=== PATIENT | male | born 1985 | race Caucasian/White ===

== ENCOUNTER 2016-09-11 21:36 | Inpatient (IN) | payer MEDICAID ==
--- NOTE | ~2016-09-11 | HP ---
Unit #: [id number] #: [id number] Patient: HIMA CARPENTER [id number] [place] [address] [id number] I MR#: [id number] NAME: HIMA CARPENTER. ROOM: P207 Age: 31 Sex: M Admission Date: 09/11/2016 : 1985 Attending Physician: Abdirahman Grey M.D. Admitting Physician: Abdirahman Grey M.D. Primary Care Physician: Generic Doctor Not In System HISTORY AND PHYSICAL HISTORY OF PRESENT ILLNESS Hima is a 31 year old admitted to [address] [place] [address] because of his drug use. He shoots heroin. PAST MEDICAL HISTORY Long history of opioid abuse to include IV heroin PAST SURGICAL HISTORY Nothing reported ALLERGIES No known drug allergies. SOCIAL HISTORY Smokes one pack per day. Denies alcohol but admits to a long history of opioid abuse to include IV heroin. FAMILY HISTORY Medically noncontributory. REVIEW OF SYSTEMS CONSTITUTIONAL: No fever or chills. HEENT: Denies any sore throat, ear pain or runny nose. CARDIOVASCULAR: Denies chest pain, irregular heart rhythm or palpitations. CHEST: Denies shortness of breath or cough. No hemoptysis. GASTROINTESTINAL: Denies nausea, vomiting, diarrhea or chronic constipation. ENDOCRINE: Denies history of increased thirst or urination. No recent significant weight loss or gain. GENITOURINARY: Denies dysuria, frequency, or hematuria. SKIN: Denies any rashes. HEMATOLOGIC: Denies history of increased bleeding or bruising. MUSCULOSKELETAL: Denies any hot, swollen joints. No generalized muscle pain. NEUROLOGIC: Denies problems with vision or speech. No frequent, severe headaches. No numbness, tingling or weakness in any extremities. Denies loss of bladder or bowel control. CURRENT MEDICATIONS Detox protocol Unit #: [id number] #: [id number] Patient: HIMA CARPENTER PHYSICAL EXAMINATION GENERAL: Alert, well-nourished, in no apparent distress. VITAL SIGNS: Blood pressure 160/72, heart rate 66, respirations 16, temperature 98.6. WEIGHT: 170 pounds. HEIGHT: 5'8". SKIN: Warm and dry without rash or lesion. HEENT: Normocephalic. TMs not viewed. Oral and nasal passages clear. Conjunctivae clear. Pupils equal, round and reactive to light and accommodation. Extraocular movements intact. NECK: Supple without lymphadenopathy or thyromegaly. HEART: Regular rate and rhythm without murmur. LUNGS: Clear. ABDOMEN: Soft, nontender. : Not done. EXTREMITIES: No evidence of cyanosis, clubbing or edema. Moves all extremities without focal deficit. NEUROLOGICAL: Grossly within normal limits. Cranial Nerves: II: Visual [place] are intact. III, IV AND : Extraocular movements are intact. Pupils are equal, round and reactive to light. V: Facial sensation is grossly normal. VII: Facial movements and expression are normal. VIII: Auditory acuity grossly intact. IX, X: Uvula is midline. Phonation is normal. XI: Patient shrugs shoulders and turns head normally. XII: Tongue protrudes in the midline. Sensory and Motor Function: Sensory and motor sensation is grossly normal. Motor: moves all extremities well. Coordination: Gait is normal. Deep Tendon Reflexes: Intact. IMPRESSION Psychiatric admission RECOMMENDATIONS PSYCHIATRIC: Per psychiatrist. MEDICAL: I see no contraindications to participating in facility's activities. MEDICAL PROGNOSIS Good. MEDICAL CONDITION Stable. Dictated by... Mandi Guerra P.A.-C. for Chano Lopez/arnulfo TD: 09/13/2016 01:00 JOB #: [id number] Unit #: [id number] #: [id number] Patient: HIMA CARPENTER HISTORY AND PHYSICAL X Mandi Guerra X HISTORY AND PHYSICAL
--- NOTE | ~2016-09-11 | PA ---
Unit #: [id number] #: [id number] Patient: HIMA CARPENTER [id number] [place] [address] [id number] I MR#: [id number] NAME: HIMA CARPENTER. ROOM: P207 Age: 31 Sex: M Admission Date: 09/11/2016 : 1985 Date of Assessment: 09/12/2016 Attending Physician: Abdirahman Grey M.D. Admitting Physician: Abdirahman Grey M.D. Primary Care Physician: Generic Doctor Not In System PSYCHIATRIC ASSESSMENT IDENTIFYING INFORMATION The patient is a 31-year-old white male, admitted to the [address] [place] [address] with relapse of heroin use and suicidal ideation. INFORMANT(S) Patient, reliability is fair. CHIEF COMPLAINT Using heroin. HISTORY OF PRESENT ILLNESS The patient is a 31-year-old white male admitted to the [address] [place] [address] with recurrent abuse of heroin by means of snorting and intravenous use. The patient denies abuse of other psychiatric substances. He was, at the time of admission, complaining of suicidal ideation with planned overdose on heroin. The patient has been residing in a local half-way house in a local transitions home. He reports that precipitant to his suicidal thinking was the anniversary of his grandfather's , his grandfather eight months ago. The patient is currently unemployed. He denied any psychotic symptoms. When seen today he appears to be in significant physical distress related to opiate withdrawal. PAST PSYCHIATRIC HISTORY Is as above. PAST MEDICAL HISTORY Noncontributory. MEDICATIONS None. ALLERGIES None. FAMILY HISTORY Noncontributory. SOCIAL HISTORY The patient is currently living in a transitions housing. He reports substance use as noted previously, and is a smoker. MENTAL STATUS EXAM At this time reveals the patient to be a well-developed, well-nourished Unit #: [id number] #: [id number] Patient: HIMA CARPENTER white male, appearing his stated age. He is in significant physical distress related to opiate withdrawal during interview. He is awake, alert, and oriented in all spheres. His mood is dysphoric. His affect is constricted. Speech is generally relevant and coherent. There are no gross deficits to memory or cognition noted. Intelligence is judged to be in the average range based on fund of knowledge. The patient is cooperative throughout the interview. He is currently endorsing positive suicidal ideation. He denies homicidal ideation. He denies any psychotic symptoms. His judgment and insight appear to be reasonably intact. ASSETS Motivation for change. LIABILITIES Lack of resources. DIAGNOSTIC IMPRESSION [place] I: Opioid use disorder. Dysthymic disorder. TREATMENT PLAN The patient remains hospitalized for safety and stabilization and routine detoxification protocol for opioids is in place and the patient has been placed on suicide precautions. ESTIMATED LENGTH OF STAY IN THE HOSPITAL [id number] days with follow up to take place through the auspices of community mental health resources. Dictated by... Abdirahman Grey M.D. Kranthi TD: 09/12/2016 14:13 JOB #: [id number] PSYCHIATRIC ASSESSMENT X Abdirahman Grey MD X PSYCHIATRIC ASSESSMENT
--- NOTE | ~2016-09-11 | DS ---
Unit #: [id number] #: [id number] Patient: HIMA CARPENTER [id number] [place] [address] [id number] MR#: [id number] NAME: HIMA CARPENTER. ROOM: P207 Age: 31 Sex: M Admission Date: 09/11/2016 : 1985 Discharge Date: 09/13/2016 Attending Physician: Abdirahman Grey M.D. Primary Care Physician: Generic Doctor Not In System DISCHARGE SUMMARY REASON FOR ADMISSION The patient is a 31-year-old single white male, admitted to the [address] [place] [address] unit for opioid and methamphetamine detox. HOSPITAL COURSE The patient was admitted to the [address] [place] [address] unit and placed on routine detoxification protocol for opioids. He stated that he had last used approximately 2 days prior to admission and by 09/13/2016, the patient exhibited a little in the way of signs or symptoms of withdrawal. He requested discharge on that date and it was so ordered. FINAL DIAGNOSES Opioid use disorder, methamphetamine use disorder. DISPOSITION ON DISCHARGE No psychotropic or other medications were ordered at the time of discharge. FOLLOWUP Followup will take place through the auspices of community mental health resources. PROGNOSIS The patient's prognosis is considered fair. Dictated by... Abdirahman Grey M.D. CB/vinnie TD: 09/13/2016 22:27 JOB #: [id number] DISCHARGE SUMMARY X Abdirahman Grey MD X DISCHARGE SUMMARY
[2016-09-12 09:45] LABS: BASOPHIL% 0.3 % (0-2.5); EOSINOPHIL# 0.2 X10e3 (0-0.7); HEMATOCRIT 38.6 % (38.0-50.0); HEMOGLOBIN 12.8 gm/dL (13.0-16.0); LYMPHOCYTE# 2.3 X10e3 (1.0-3.5); LYMPHOCYTE% 36.9 % (17.0-45.0); MEAN CELL VOLUME 90.6 FL (83-96); MEAN CORPUSCULAR HGB CONC 33.2 g/dL (30-36); MEAN PLATELET VOLUME 8.2 FL (6.5-11.5); MONOCYTE# 0.5 X10e3 (0-1.0); MONOCYTE% 7.9 % (3.0-12.0); NEUTROPHIL# 3.2 X10e3 (1.5-7.1); NEUTROPHIL% 51.9 % (40-75); PLATELET COUNT 149 X10e3 (140-420); RED BLOOD COUNT 4.26 X10e (3.90-5.60); RED CELL DISTRIBUTION WIDTH 13.6 % (11.0-15.5); WHITE BLOOD COUNT 6.2 X10e3 (4.0-10.5)
[2016-09-12 09:52] LABS: THYROID STIMULATING HORMONE 0.46 uIU/ml (0.34-5.60)
[2016-09-12 09:53] LABS: DIFF IND NO
[2016-09-12 09:59] LABS: FREE THYROXIN (T4) 0.97 ng/dL (0.58-1.64)
[2016-09-12 10:05] LABS: ALBUMIN SERUM 3.4 g/dL (3.5-5.0); ALKALINE PHOSPHATASE 71 U/L (32-92); ALT (SGPT) 249 U/L (10-40); AST (SGOT) 125 U/L (10-42); BLOOD UREA NITROGEN 7 mg/dL (9-23); BUN/CREATININE RATIO 8.75; CARBON DIOXIDE 27 mmol/L (22-31); CHLORIDE 104 mmol/L (100-111); CREATININE SERUM 0.8 mg/dL (0.6-1.4); GLOM FILT RATE Estimated ABOVE60 mL/min (>60); GLUCOSE FASTING 158 mg/dL (70-110); POTASSIUM 4.3 mmol/L (3.5-5.1); PROTEIN TOTAL SERUM 5.7 g/dL (6.0-8.3); SODIUM 138 mmol/L (135-145)
[2016-09-13 09:52] LABS: URINE APPEARANCE CLEAR; URINE BILIRUBIN NEG (NEG); URINE BLOOD NEG (NEG); URINE COLOR YELLOW; URINE GLUCOSE NEG (NEG); URINE KETONE NEG (NEG); URINE LEUKOCYTE ESTERASE NEG (NEG); URINE NITRATE NEG (NEG); URINE PH 6.5 (5-8); URINE PROTEIN NEG (NEG); URINE SPECIFIC GRAVITY 1.008 (1.003-1.035); URINE UROBILINOGEN 0.2 MG/DL (NEG)
[2016-09-13 11:16] LABS: AMPHETAMINE NEG (NEG); BARBITURATES NEG (NEG); BENZODIAZEPINES NEG (NEG); COCAINE NEG (NEG); MARIJUANA NEG (NEG); OPIATES NEG (NEG); TRICYCLIC ANTIDEPRESSANTS NEG (NEG); U METHADONE NEG (NEG)
[2016-09-16 13:27] LABS: HA AB IGM (HEPPAN) Nonreactive (Nonreactive); HB CORE AB IGM (HEPPAN) Nonreactive (Nonreactive); HB S AG (HEPPAN) Nonreactive (Nonreactive); HEP C AB (HEPPAN) Reactive (Nonreactive)
== END 2016-09-13 13:30 | DRG 897 ==
LOC: P2S 21:36
PROVIDERS: Specialist
PROC: HZ2ZZZZ Detoxification Services for Substance Abuse Treatment (ICD-10-PCS; principal; 2016-09-11)
DX: F11.20 Opioid dependence, uncomplicated (principal); F15.20 Other stimulant dependence, uncomplicated; F34.1 Dysthymic disorder; F17.200 Nicotine dependence, unspecified, uncomplicated
CPT/HCPCS: 80053; 80074; 80307; 81003; 84439; 84443; 85025; 86592; 87522; 87806